=== PATIENT | male | born 1975 | race Caucasian/White ===

== ENCOUNTER 2021-04-18 08:30 | Day surgery (SDC) | payer BC ==
[~2021-04-18] VITALS: Ht 177.8 cm; Wt 118.0 kg
[2021-04-18] MEDS ORDERED: AZULFIDINE500 MG/TAB PO (08:46)
[2021-04-18 08:53] VITALS: BP 137/92; PULSE 90; TEMP 97.9
[2021-04-18 10:10] VITALS: BP 116/80; PULSE 81; TEMP 97.8
--- NOTE | 2021-04-18 10:15 | NUR ---
PATIENT TRANSPORTED PER CART FROM ENDO SUITE TO BAY 6 ACCOMPANIED BY ENDO RN. PATIENT TALKING WITH STAFF. PATIENT AMBULATED FROM CART TO CHAIR WITH SLOW STEADY GAIT WITH 1 ASSIST. MONITORS REAPPLIED. VSS ON ROOM AIR. VERBAL REPORT RECEIVED.
[2021-04-18 10:30] VITALS: BP 122/75; PULSE 76
--- NOTE | 2021-04-18 10:30 | NUR ---
VSS ON ROOM AIR. PATIENT TOLERATES APPLE JUICE WITHOUT PROBLEMS. PATIENT DENIES DISCOMFORT AND NAUSEA. PATIENT WATCHING TV. DR ZUNIGA IN ROOM AND SPEAKS WITH PATIENT.
[2021-04-18 10:45] VITALS: BP 126/72; PULSE 78
--- NOTE | 2021-04-18 10:45 | NUR ---
VSS ON ROOM AIR. PATIENT EATS TOAST WITHOUT PROBLEMS. CALLED TO PICKUP PATIENT.
[2021-04-18 10:55] VITALS: BP 132/82; PULSE 16
--- NOTE | 2021-04-18 10:55 | NUR ---
VSS ON ROOM AIR. IV DC'D PER PROTOCOL. DISCHARGE INSTRUCTIONS GIVEN VERBAL AND DISCHARGE PACKET REVIEWED. QUESTIONS ANSWERED AND PATIENT VOICED UNDERSTANDING. PATIENT CHANGES INTO STREET CLOTHES.
--- NOTE | 2021-04-18 11:07 | NUR ---
PATIENT DISCHARGED PER WHEEL CHAIR [facility]AN[facility]
== END 2021-04-18 11:07 | disposition home or self-care (01) ==
LOC: SDCO 08:30
DX: K51.00 Ulcerative (chronic) pancolitis without complications (principal); K64.0 First degree hemorrhoids; G47.33 Obstructive sleep apnea (adult) (pediatric); Z88.1 Allergy status to other antibiotic agents; K76.0 Fatty (change of) liver, not elsewhere classified
CPT/HCPCS: J2704; J7030